=== PATIENT | female | born 1990 | race Caucasian/White ===

== ENCOUNTER 2018-01-07 00:51 | Emergency (ER) | payer OTHER ==
[2018-01-07] MEDS ORDERED: LIDOCAINE 1% INJ-PF (10 MG/ML) 30 ML SDV INJ ONE (01:25)
--- NOTE | 2018-01-07 01:26 | ER Document Report ---
ED General - General Chief Complaint: Suicidal Ideation Stated Complaint: SUICIDAL IDEATION Time Seen by Provider: 01/07/18 01:02 Mode of Arrival: Ambulatory TRAVEL OUTSIDE OF THE [place] IN LAST 30 DAYS: No - HPI Patient complains to provider of: self injury Onset: Other - This is a 27-year-old female that presents for evaluation of depression as well as her right wrist. She notes that she has been wanting to harm herself recently because she is going through divorce and feeling very stressed. She has had an attempt to harm herself in the past when she was stressed. Is not currently on any medications is never been done before, was seen a week prior and told that she should pursue outpatient treatment was discharged from [facility]. She denies any desire to harm anyone else, any hallucinations. - Related Data Allergies/Adverse Reactions: No Known Allergies Allergy (Unverified 01/07/18 01:10) Past Medical History - General Information source: Patient - Social History Smoking Status: Former Smoker Family History: None Psychiatric Medical History: Reports: Hx Depression Review of Systems - Review of Systems -: Yes All other systems reviewed and negative Physical Exam - Vital signs Vitals: Pulse 99 01/07/18 01:10 - General General appearance: Appears well In distress: None - HEENT Head: Normocephalic Eyes: Normal Conjunctiva: Normal Cornea: Normal Extraocular movements intact: Yes Eyelashes: Normal Pupils: PERRL - Respiratory Respiratory status: No respiratory distress Chest status: Nontender Breath sounds: Normal Chest palpation: Normal - Cardiovascular Rhythm: Regular Heart sounds: Normal auscultation Murmur: No - Abdominal Inspection: Normal Distension: No distension Tenderness: Nontender - Back Back: Normal - Extremities General lower extremity: Normal inspection, Nontender, Normal ROM, Normal strength Arm: Other - The upper extremities are symmetric, there is normal range of motion at the shoulders, elbows, wrists. There is a linear horizontal laceration extending against the dorsal aspect of the right forearm into the subcutaneous tissue, no appreciable underlying tendon injury, no appreciable muscular involvement - Neurological Neuro grossly intact: Yes Cognition: Normal Orientation: AAOx4 Benedicta Coma Scale Eye Opening: Spontaneous Angelita Coma Scale Verbal: Oriented Angelita Coma Scale Motor: Obeys Commands Benedicta Coma Scale Total: 15 Speech: Normal Cranial nerves: Normal Cerebellar coordination: Normal Motor strength normal: LUE, RUE, LLE, RLE - Psychological Associated symptoms: Normal affect Course - Re-evaluation Re-evalutation: 01/07/18 06:26 27-year-old female who cut her right wrist this evening in an attempt to harm herself. Has a history of depression which is been untreated in the past, notes that she is got increased stress as a relation of going through divorce. Denies any medical problems, any other health problems, any medication use drug use or otherwise. Patient is a 4 cm laceration over the right forearm, will primarily repair this. Will update patient's tetanus. Will contact psychiatry for evaluation of this patient. We will defer disposition determination through mental health services. At this time the patient has been medically cleared, she is clinically sober. - Vital Signs Vital signs: Temp Pulse Resp BP Pulse Ox 99 01/07/18 01:10 - Laboratory Result Diagrams: 01/07/18 01:35 01/07/18 01:35 Laboratory results interpreted by me: 01/07/18 01:35 Sodium 146.2 H Chloride 108 H AST 12 L Total Protein 8.7 H Albumin 5.2 H Salicylates < 1.0 L Acetaminophen < 10 L Procedures - Laceration/Wound Repair Right Volar Arm Wound length (cm): 4 Wound's Depth, Shape: Superficial Laceration pre-procedure: Sterile PPE donned Anesthetic type: 1% Lidocaine Volume Anesthetic (mLs): 5 Wound explored: Clean Irrigated w/ Saline (mLs): 500 Wound Debrided: Minimal Wound Repaired With: Sutures Suture Size/Type: 4:0, Prolene Number of Sutures: 3 Layer Closure?: No Discharge - Discharge Clinical Impression: Self-injurious behavior
[2018-01-07 01:45] LABS: ABSOLUTE EOSINOPHILS # (AUTO) 0.1 10^3/uL (0.0-0.6); ABSOLUTE LYMPHOCYTES (AUTO) 2.5 10^3/uL (0.5-4.7); ABSOLUTE MONOCYTES (AUTO) 0.4 10^3/uL (0.1-1.4); ABSOLUTE NEUT (AUTO) 3.2 10^3/uL (1.7-8.2); BASOPHILS % (AUTO) 0.8 % (0-2); EOSINOPHILS % (AUTO) 1.8 % (0-6); HEMATOCRIT 40.8 % (36.0-47.0); LYMPHOCYTES % (AUTO) 40.2 % (13-45); MEAN CORPUSCULAR HEMOGLOBIN 30.4 pg (27.0-33.4); MEAN CORPUSCULAR HGB CONC 34.3 g/dL (32.0-36.0); MEAN CORPUSCULAR VOLUME 89 fl (80-97); MONOCYTES % (AUTO) 6.8 % (3-13); PLATELET COUNT 282 10^3/uL (150-450); RED BLOOD COUNT 4.61 10^6/uL (3.72-5.28); RED CELL DISTRIBUTION WIDTH 13.1 % (11.5-14.0); SEGMENTED NEUTROPHILS % (AUTO) 50.4 % (42-78); TOTAL CELLS COUNTED % (AUTO) 100 %; WHITE BLOOD COUNT 6.3 10^3/uL (4.0-10.5)
[2018-01-07 01:55] LABS: APPEARANCE,URINE CLEAR; BILIRUBIN,URINE NEGATIVE (NEGATIVE); COLOR,URINE COLORLESS; GLUCOSE, URINE NEGATIVE (NEGATIVE); KETONES,URINE NEGATIVE (NEGATIVE); LEUKOCYTE ESTERASE,URINE NEGATIVE (NEGATIVE); NITRITE,URINE NEGATIVE (NEGATIVE); PROTEIN,URINE NEGATIVE (NEGATIVE); URINE SPECIFIC GRAVITY 1.001; UROBILINOGEN,URINE NEGATIVE mg/dL (<2.0)
[2018-01-07 02:02] LABS: ALANINE AMINOTRANSFERASE 27 U/L (9-52); ALBUMIN 5.2 g/dL (3.5-5.0); ALCOHOL 212 mg/dL (NONE DETECTED); ALKALINE PHOSPHATASE 46 U/L (38-126); ANION GAP 15 (5-19); ASPARTATE AMINO TRANSFERASE 12 U/L (14-36); BILIRUBIN,DIRECT 0.2 mg/dL (0.0-0.4); BILIRUBIN,TOTAL 0.6 mg/dL (0.2-1.3); BLOOD UREA NITROGEN 7 mg/dL (7-20); CALCIUM 9.5 mg/dL (8.4-10.2); CARBON DIOXIDE 23 mmol/L (22-30); CHLORIDE 108 mmol/L (98-107); GLUCOSE 103 mg/dL (75-110); POTASSIUM 4.2 mmol/L (3.6-5.0); SODIUM 146.2 mmol/L (137-145); TOTAL PROTEIN 8.7 g/dL (6.3-8.2)
[2018-01-07 02:05] LABS: ACETAMINOPHEN < 10 ug/mL (10-30); SALICYLATE < 1.0 mg/dL (2.0-20.0)
[2018-01-07 02:12] LABS: URINE AMPHETAMINES SCREEN NEGATIVE; URINE BARBITURATES SCREEN NEGATIVE; URINE BENZODIAZEPINES SCREEN NEGATIVE; URINE COCAINE SCREEN NEGATIVE; URINE MARIJUANA (THC) SCREEN NEGATIVE; URINE METHADONE SCREEN NEGATIVE; URINE PHENCYCLIDINE SCREEN NEGATIVE
[2018-01-07] MEDS ORDERED: DIPH/PERTUSS(ACELL)/TETANUS VAC/PF 0.5 ML SYR (>=10YO) IM ONE (02:41)
--- NOTE | 2018-01-07 09:34 | EKG REPORT ---
SEVERITY:- NORMAL ECG - SINUS RHYTHM : Confirmed by: Reanna Phoenix MD 07-Jan-2018 09:33:14
--- NOTE | 2018-01-07 09:57 | ER Document Report ---
Doctor's Note Notes: 01/07/18 09:56 27-year-old female presenting with suicidal ideations and cutting her wrist. Patient has stress secondary to going through a divorce. Patient was supposedly seen and released from [facility] 1 week ago. Patient has no psychiatrist and does not have any formal psychiatric diagnosis according to the patient's report. Vital signs are stable. Labs as recorded. Awaiting psychiatry evaluation. 01/07/18 10:12 I have added a test and have had a long discussion with the patient and the friend in the room. Patient does feel comfortable going home as she states she does have a psychology appointment on Tuesday but still does not trust herself feeling safe to not inflict self-harm. She denies any auditory visual hallucinations. Labs as recorded. Vital signs are stable.
--- NOTE | 2018-01-07 13:56 | PSYCHOLOGICAL NOTE ---
Psych Note - Psych Note Psych Note: Reason for consult: suicidal ideation, depression Consent for permissions: Mandy, personal friend [phone] Pt arrives to ED with c/o depression. Pt has cut her right forearm prior to arrival. Pt was seen at [facility] and d/c home yesterday for outpatient care. Pt has appointment with [facility] for Tue. 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 No specific incident has occured to cause her to harm herself. Pt reports history of same. Patient states that she "self inflicted" a wound to her right arm last night. Patient disclosed that she does not feel sad but impulsive and that is why she chose to cut her self. Patient states that she was not trying to kill her self but just release the anger. Patient says that "she just got the thought in her head" and cut herself. When asked why she does not want to kill herself by this Clinician, patient reported "I couldn't do that to my parents". Patient also disclosed that she does not have access to weapons in the home. Patient was discharged from [facility] last night and has an appointment on Tuesday at [facility]. Patient is requesting inpatient hospitalization because she knows that she will not follow through on her own if it is "just" outpatient therapy. Patient reports that she was also hospitalized at the [facility] overnight in September for an incident of cutting but was released. 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 However, patient discloses that she was drinking during this incident. Patient is not sure how she feels about the divorce at this time. Mandy, the patient's friend, reports that her and the patient met up at [employer] for drinks and dinner. Mandy states that the patient also attended a wine & design class before coming to meet her for drinks, so patient may have already had some alcohol in her system. After awhile, Mandy and the patient split up and went their separate ways for the evening. Mandy states that she was home for about an hour when she got a call that the patient was in crisis. Mandy states that she called 911 and rode in the ambulance with the client. Mandy reports that the patient gets very depressed when she is drinking but can function fine when there is no alcohol involved. Just the other night, Mandy states that patient came to her house to watch movies and no alcohol was involved. Mandy does remember a conversation about one month ago, where patient exclaimed "I don't know why I am here" during a conversation but would not elaborate. Mandy messaged the patient's overseas and he confirmed that there was a gun in the house under a padlock and that the patient did not have the combination to open it. Patient is alert and oriented to person, place, time and circumstance. Mood is dysphoric with a tearful affect. Patient denied suicidal ideation to this clinician during the assessment but then could not rule it out when she spoke to the doctor. Conversational speech was within normal rate, tone and prosody. Intellectual abilities appear to be within the average range. Attention and Concentration are fair. Insight, judgment and impulse control are fair. Eye contact was well maintained. Organized and linear thought process present during assessment. No medication recommendations at this time Diagnosis 301.83 (F60.3) Borderline Personality Disorder Impression/Plan: Patient is recommended for IVC. Patient is experiencing increased depression and self harm behaviors. Patient has been accepted into [facility] and will be transported today. Patient disclosed to the physician that she did not feel safe going home and could not rule out active suicidal ideation. 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 Patient's mood is dysphoric with a tearful affect. Patient is slow to engage the Clinician at this time. Dr. Gao was consulted on the care and management of this patient; attending physician is in agreement with recommendations and disposition.
[2018-01-08 03:59] VITALS: BP 115/77
== END 2018-01-08 03:57 ==
LOC: ER 00:51
PROC: 0HQDXZZ Repair Right Lower Arm Skin, External Approach (ICD-10-PCS; principal; 2018-01-07)
DX: F32.9 Major depressive disorder, single episode, unspecified (principal); S51.811A Laceration without foreign body of right forearm, initial encounter; X78.9XXA Intentional self-harm by unspecified sharp object, initial encounter; R45.851 Suicidal ideations; Z87.891 Personal history of nicotine dependence; Z23 Encounter for immunization
CPT/HCPCS: 93005; 99285; 36415; 80307 ×4; 85025; 81025; 80053; 81001; 90715; 93010; 12002; J3490

== ENCOUNTER 2018-04-19 00:44 | Inpatient (IN) | payer OTHER ==
--- NOTE | 2018-04-19 01:03 | ER Document Report ---
ED Substance Abuse / Acc. OD - General Chief Complaint: Overdose Stated Complaint: POSSIBLE OVERDOSE Time Seen by Provider: 04/19/18 01:02 Mode of Arrival: Stretcher Information source: Patient Notes: Patient is a 27-year-old female with a past history of chronic depression who presents with intentional overdose just prior to arrival. Patient reports feeling suicidal, therefore she took an entire bottle (30) of 150 mg Wellbutrin. She currently reports feeling increased depression but is unwilling to give details, however she does deny any issues with family or friends that precipitated the episode. She currently denies confusion, weakness, nausea, vomiting, vision changes, or any other symptom. TRAVEL OUTSIDE OF THE [place] IN LAST 30 DAYS: No - HPI Patient complains to provider of: Other - Intentional drug overdose Onset: Just prior to arrival Onset/Duration: Sudden Quality of pain: No pain Severity: None Pain Level: Denies Situational problems related to: Spouse Overdose of: Anti-depressants Associated Symptoms: None Similar symptoms previously: No Recently seen / treated by doctor: No - Related Data Allergies/Adverse Reactions: No Known Allergies Allergy (Unverified 01/07/18 01:10) Past Medical History - General Information source: Patient, Emergency Med Personnel - Social History Smoking Status: Never Smoker Chew tobacco use (# tins/day): No Frequency of alcohol use: None Drug Abuse: None Lives with: Family Family History: None Patient has suicidal ideation: Yes Patient has homicidal ideation: No - Past Medical History Cardiac Medical History: Reports: None Pulmonary Medical History: Reports: None EENT Medical History: Reports: None Neurological Medical History: Reports: None Endocrine Medical History: Reports: None Renal/ Medical History: Reports: None Malignancy Medical History: Reports: None GI Medical History: Reports: None Musculoskeletal Medical History: Reports None Skin Medical History: Reports None Psychiatric Medical History: Reports: Hx Depression Traumatic Medical History: Reports: None Infectious Medical History: Reports: None Surgical Hx: Negative Past Surgical History: Reports: None - Immunizations Immunizations up to date: Yes Hx Diphtheria, Pertussis, Tetanus Vaccination: Yes Review of Systems - Review of Systems Constitutional: No symptoms reported EENT: No symptoms reported Cardiovascular: No symptoms reported Respiratory: No symptoms reported Gastrointestinal: No symptoms reported Genitourinary: No symptoms reported Female Genitourinary: No symptoms reported Musculoskeletal: No symptoms reported Skin: No symptoms reported Hematologic/Lymphatic: No symptoms reported Neurological/Psychological: See HPI, Depression, Suicidal ideation -: Yes All other systems reviewed and negative Physical Exam - Vital signs Vitals: Temp Resp Pulse Ox 98.7 F 20 99 04/19/18 00:50 04/19/18 00:50 04/19/18 00:50 Interpretation: Normal - Notes Notes: Patient is visibly upset and depressed appearing but in no acute distress - General General appearance: Appears well, Alert - HEENT Head: Normocephalic, Atraumatic Eyes: Normal Pupils: PERRL - Respiratory Respiratory status: No respiratory distress Chest status: Nontender Breath sounds: Normal Chest palpation: Normal - Cardiovascular Rhythm: Regular Heart sounds: Normal auscultation Murmur: No - Abdominal Inspection: Normal Distension: No distension Bowel sounds: Normal Tenderness: Nontender Organomegaly: No organomegaly - Rectal Notes: Deferred - Genitourinary Notes: Deferred - Back Back: Normal, Nontender - Extremities General upper extremity: Normal inspection, Nontender, Normal color, Normal ROM, Normal temperature General lower extremity: Normal inspection, Nontender, Normal color, Normal ROM, Normal temperature, Normal weight bearing. No: Marcia's sign - Neurological Neuro grossly intact: Yes Cognition: Normal Orientation: AAOx4 Angelita Coma Scale Eye Opening: Spontaneous [place] Coma Scale Verbal: Oriented [place] Coma Scale Motor: Obeys Commands [place] Coma Scale Total: 15 Speech: Normal Motor strength normal: LUE, RUE, LLE, RLE Sensory: Normal - Psychological Associated symptoms: Anxious, Depressed - Skin Skin Temperature: Warm Skin Moisture: Dry Skin Color: Normal Course - Re-evaluation Re-evalutation: 04/19/18 01:38 Patient clearly intended to overdose. Currently is stable but upset. Consultation with the [facility] Control [facility] revealed to admit the patient for a 24-hour observation to assess for seizure activity as well as prolonged QT intervals on EKG. Will obtain labs, involuntarily commit the patient, and admit. 04/19/18 04:53 Patient continues to be stable, labs are unremarkable. - Vital Signs Vital signs: Temp Pulse Resp BP Pulse Ox 98.7 F 18 94/56 L 97 04/19/18 00:50 04/19/18 02:01 04/19/18 02:01 04/19/18 02:01 - Laboratory Result Diagrams: 04/19/18 01:02 04/19/18 01:02 Laboratory results interpreted by me: 04/19/18 01:02 Chloride 112 H Carbon Dioxide 21 L Glucose 156 H AST 12 L Salicylates < 1.0 L Acetaminophen < 10 L - EKG Interpretation by Me EKG shows normal: Sinus rhythm Rate: Normal Rhythm: NSR Hersey/QRS: No: Right axis deviation, Left axis deviation, RBBB, LBBB, IVCD, LAHB/LAFB, LPHB/LPFB, Bifasicular block Voltage: No: Increased voltage, Consistant with LVH, Decreased voltage, Throughout, Limb leads Heart block present: No: 1st Degree, Mobitz 1, Mobitz 2, CHB (3rd degree block) When compared to previous EKG there are: No significant change - Consults Dr. Cordova Time consulted: 04:54 - will admit Consulted provider: will come to ER Discharge - Discharge Clinical Impression: Intentional overdose of drug in tablet form Condition: Stable Disposition: ADMITTED INPATIENT Admitting Provider: Hospitalist Unit Admitted: Telemetry
[2018-04-19 01:08] LABS: ABSOLUTE BASOPHILS # (AUTO) 0.1 10^3/uL (0.0-0.2); ABSOLUTE EOSINOPHILS # (AUTO) 0.3 10^3/uL (0.0-0.6); ABSOLUTE LYMPHOCYTES (AUTO) 2.5 10^3/uL (0.5-4.7); ABSOLUTE MONOCYTES (AUTO) 0.3 10^3/uL (0.1-1.4); ABSOLUTE NEUT (AUTO) 3.3 10^3/uL (1.7-8.2); BASOPHILS % (AUTO) 0.8 % (0-2); EOSINOPHILS % (AUTO) 4.1 % (0-6); HEMOGLOBIN 13.3 g/dL (12.0-15.5); LYMPHOCYTES % (AUTO) 38.1 % (13-45); MEAN CORPUSCULAR HEMOGLOBIN 29.7 pg (27.0-33.4); MEAN CORPUSCULAR HGB CONC 33.3 g/dL (32.0-36.0); MEAN CORPUSCULAR VOLUME 89 fl (80-97); MONOCYTES % (AUTO) 5.2 % (3-13); PLATELET COUNT 245 10^3/uL (150-450); RED BLOOD COUNT 4.48 10^6/uL (3.72-5.28); RED CELL DISTRIBUTION WIDTH 12.6 % (11.5-14.0); SEGMENTED NEUTROPHILS % (AUTO) 51.8 % (42-78); TOTAL CELLS COUNTED % (AUTO) 100 %; WHITE BLOOD COUNT 6.5 10^3/uL (4.0-10.5)
[2018-04-19 01:24] LABS: ALANINE AMINOTRANSFERASE 24 U/L (9-52); ALBUMIN 4.7 g/dL (3.5-5.0); ALCOHOL 248 mg/dL (NONE DETECTED); ALKALINE PHOSPHATASE 62 U/L (38-126); ANION GAP 12 (5-19); ASPARTATE AMINO TRANSFERASE 12 U/L (14-36); BILIRUBIN,DIRECT 0.1 mg/dL (0.0-0.4); BILIRUBIN,TOTAL 0.3 mg/dL (0.2-1.3); BLOOD UREA NITROGEN 12 mg/dL (7-20); CALCIUM 8.9 mg/dL (8.4-10.2); CARBON DIOXIDE 21 mmol/L (22-30); CHLORIDE 112 mmol/L (98-107); GLUCOSE 156 mg/dL (75-110); POTASSIUM 3.8 mmol/L (3.6-5.0); SODIUM 144.6 mmol/L (137-145); TOTAL PROTEIN 7.4 g/dL (6.3-8.2)
[2018-04-19 01:25] LABS: ACETAMINOPHEN < 10 ug/mL (10-30); SALICYLATE < 1.0 mg/dL (2.0-20.0)
[2018-04-19] MEDS ORDERED: NORMAL SALINE 1000 ML 1,000 ML IV ONE (03:47)
[2018-04-19] MEDS ORDERED: MAG HYDROX/AL HYDROX/SIMETH SUSP 30 ML UDCUP PO PRN (06:12)
[2018-04-19] MEDS ORDERED: ONDANSETRON 4 MG TAB.RAPDIS PO PRN (06:12)
[2018-04-19] MEDS ORDERED: MAGNESIUM HYDROXIDE SUSP 30 ML UDCUP PO PRN (06:12)
[2018-04-19] MEDS ORDERED: ONDANSETRON HCL INJ/PF 4 MG/2 ML SDV IV PRN (06:12)
[2018-04-19] MEDS ORDERED: NALBUPHINE HCL INJ 10 MG/1 ML AMPULE IV PRN (06:45)
--- NOTE | 2018-04-19 06:45 | PDOC H&P ---
History of Present Illness Admission Date/PCP: 04/19/18 04:56 Patient complains of: Bupropion overdose History of Present Illness: VIKKI ALDRIDGE is a 27 year old female who presented to the emergency room within an hour of taking 30 capsules of bupropion 150 mg at home. Patient states that the affect was more 1 of an impulse than of a thought out plan to actually kill herself. The impulse was definitely suicidal but she very quickly changed her mind after taking the pills. She denies any symptoms after ingestion with the exception of drowsiness and a moderately severe bifrontal headache. In the emergency room she was found to have essentially negative evaluation and was subsequently admitted to observation status for telemetry monitoring for arrhyth mias and serial monitoring of her vital signs. Involuntary commitment papers have been signed and the patient will most likely be seen by a inpatient psychiatric facility after discharge/transfer if advised by psychiatric services. Past Medical History Cardiac Medical History: Denies: Coronary Artery Disease, DVT, Hyperlipidema, Hypertension, Pulmonary Embolism Pulmonary Medical History: Denies: Asthma, Bronchitis, Pneumonia EENT Medical History: Reports: None Neurological Medical History: Denies: Multiple Sclerosis, Seizures Endocrine Medical History: Denies: Diabetes Mellitus Type 1, Hyperthyroidism, Hypothyroidism Renal/ Medical History: Denies: Chronic Kidney Disease, Nephrolithiasis Malignancy Medical History: Reports: None GI Medical History: Denies: Cirrhosis, Crohn's Disease, Hepatitis, Ulcerative Colitis Musculoskeltal Medical History: Denies: Arthritis, Fibromyalgia Skin Medical History: Denies: Eczema, Psoriasis Psychiatric Medical History: Reports: Depression Denies: Alcohol Dependency, Substance Abuse, Tobacco Dependency Traumatic Medical History: Reports: None Hematology: Denies: Anemia, Bleeding Tendencies Infectious Medical History: Reports: None Past Surgical History Past Surgical History: Reports: None Social History Information Source: Patient Lives with: Family Smoking Status: Never Smoker Frequency of Alcohol Use: None Hx Recreational Drug Use: No Drugs: None Hx Prescription Drug Abuse: No - Advance Directive Resuscitation Status: Full Code Surrogate healthcare decision maker:: Mandy Rogers Family History Family History: denies: CAD, DM, Hypertension, Malignancy Parental Family History Reviewed: Yes Children Family History Reviewed: No Sibling(s) Family History Reviewed.: Yes Medication/Allergy Home Medications: No Home Medications 01/07/18 Allergies/Adverse Reactions: No Known Allergies Allergy (Unverified 10/13/18 01:10) Review of Systems Constitutional: PRESENT: as per HPI, headache(s), other - Somnolence. ABSENT: anorexia, fever(s) Eyes: ABSENT: visual disturbances, other - Ocular pain Ears: ABSENT: hearing changes, other - Ear pain Nose, Mouth, and Throat: ABSENT: mouth pain, sore throat Cardiovascular: ABSENT: chest pain, dyspnea on exertion, edema, orthropnea, palpitations Respiratory: ABSENT: cough, dyspnea Gastrointestinal: ABSENT: abdominal pain, constipation, diarrhea, nausea, vomiting Genitourinary: ABSENT: dysuria, hematuria Musculoskeletal: ABSENT: deformity, joint swelling Integumentary: ABSENT: pruritus, rash Neurological: ABSENT: confusion, convulsions, memory loss, tremor(s) Psychiatric: PRESENT: depression, suicidal ideation. ABSENT: anxiety Endocrine: ABSENT: cold intolerance, heat intolerance Hematologic/Lymphatic: ABSENT: easy bleeding, easy bruising Physical Exam Vital Signs: Temp Pulse Resp BP Pulse Ox 98.7 F 17 99/70 L 97 04/19/18 00:50 04/19/18 05:36 04/19/18 05:36 04/19/18 05:36 General appearance: PRESENT: no acute distress, cooperative Head exam: PRESENT: atraumatic, normocephalic Eye exam: PRESENT: conjunctiva pink, EOMI. ABSENT: scleral icterus Ear exam: PRESENT: normal external ear exam. ABSENT: bleeding, drainage Mouth exam: PRESENT: dry mucosa, neck supple Neck exam: ABSENT: JVD, thyromegaly, tracheal deviation Respiratory exam: PRESENT: clear to auscultation cherie, symmetrical, unlabored Cardiovascular exam: PRESENT: RRR. ABSENT: clicks, diastolic murmur, gallop, rubs, systolic murmur Pulses: PRESENT: normal radial pulses, normal dorsalis pedis pul Vascular exam: PRESENT: normal capillary refill. ABSENT: pallor GI/Abdominal exam: PRESENT: normal bowel sounds, soft Rectal exam: PRESENT: deferred Extremities exam: ABSENT: joint swelling, pedal edema, tenderness Musculoskeletal exam: PRESENT: full ROM, normal inspection Neurological exam: PRESENT: alert, oriented to person, oriented to place, oriented to time, oriented to situation, CN II-XII grossly intact. ABSENT: motor sensory deficit Psychiatric exam: PRESENT: appropriate affect, depressed, suicidal ideation Skin exam: PRESENT: dry, intact, warm. ABSENT: jaundice, rash, urticaria Results Laboratory Results: 04/19/18 01:02 04/19/18 01:02 04/19/18 04/19/18 04/19/18 01:02 01:02 01:02 WBC 6.5 RBC 4.48 Hgb 13.3 Hct 40.0 MCV 89 MCH 29.7 MCHC 33.3 RDW 12.6 Plt Count 245 Seg Neutrophils % 51.8 Lymphocytes % 38.1 Monocytes % 5.2 Eosinophils % 4.1 Basophils % 0.8 Absolute Neutrophils 3.3 Absolute Lymphocytes 2.5 Absolute Monocytes 0.3 Absolute Eosinophils 0.3 Absolute Basophils 0.1 Sodium 144.6 Potassium 3.8 Chloride 112 H Carbon Dioxide 21 L Anion Gap 12 BUN 12 Creatinine 0.84 Est GFR ( Amer) > 60 Est GFR (Non-Af Amer) > 60 Glucose 156 H Calcium 8.9 Total Bilirubin 0.3 AST 12 L ALT 24 Alkaline Phosphatase 62 Total Protein 7.4 Albumin 4.7 Serum HCG, Qual NEGATIVE Assessment & Plan - Diagnosis (1) Depression Qualifiers: Depression Type: unspecified Qualified Code(s): F32.9 - Major depressive disorder, single episode, unspecified Is this a current diagnosis for this admission?: Yes Plan: Patient will be evaluated by psychiatric services and therapy will be initiated or patient will be referred for inpatient psychiatric therapy where she will be started on a treatment program. (2) Suicidal ideation Is this a current diagnosis for this admission?: Yes Plan: Patient will be evaluated by psychiatric services. Involuntary commitment papers have been filled out and are available on the chart. (3) Headache Qualifiers: Headache type: unspecified Headache chronicity pattern: acute headache Intractability: not intractable Qualified Code(s): R51 - Headache Is this a current diagnosis for this admission?: Yes Plan: Patient will be treated with Tylenol as needed for headache pain and if pain is severe she can be treated with Nubain 10 mg IV every 3 hours as needed severe headache. (4) Intentional overdose of drug in tablet form Is this a current diagnosis for this admission?: Yes Plan: Patient will be evaluated by psychiatric services and appropriate treatment and disposition will be determined. Involuntary commitment papers are available on the patient's chart. - Time Time Spent: 30 to 50 Minutes Critical Time spent with patient: Less than 15 minutes Anticipated discharge: Other - Inpatient psychiatric facility - Inpatient Certification Based on my medical assessment, after consideration of the patient's c omorbidities, presenting symptoms, or acuity I expect that the services needed warrant INPATIENT care.: Yes I certify that my determination is in accordance with my understanding of Medicare's requirements for reasonable and necessary INPATIENT services [42 CFR 412.3e].: Yes Medical Necessity: Need Close Monitoring Due to Risk of Patient Decompensation, Need For Continuous Telemetry Monitoring, Risk of Complication if Not Cared For in Hospital
--- NOTE | 2018-04-19 07:25 | EKG REPORT ---
SEVERITY:- BORDERLINE ECG - SINUS RHYTHM CONSIDER RIGHT VENTRICULAR HYPERTROPHY : Confirmed by: Reanna Phoenix MD 19-Apr-2018 07:24:59
--- NOTE | 2018-04-19 07:26 | EKG REPORT ---
SEVERITY:- ABNORMAL ECG - SINUS TACHYCARDIA NONSPECIFIC REPOL ABNORMALITY, DIFFUSE LEADS : Confirmed by: Reanna Phoenix MD 19-Apr-2018 07:25:24
[2018-04-19 07:50] LABS: APPEARANCE,URINE CLEAR; BILIRUBIN,URINE NEGATIVE (NEGATIVE); COLOR,URINE STRAW; GLUCOSE, URINE NEGATIVE (NEGATIVE); KETONES,URINE NEGATIVE (NEGATIVE); LEUKOCYTE ESTERASE,URINE NEGATIVE (NEGATIVE); NITRITE,URINE NEGATIVE (NEGATIVE); PROTEIN,URINE NEGATIVE (NEGATIVE); URINE SPECIFIC GRAVITY 1.012; UROBILINOGEN,URINE NEGATIVE mg/dL (<2.0)
[2018-04-19] MEDS ORDERED: OXYCODONE-ACETAMINOPHEN 5-325 MG TABLET PO PRN (08:03)
[2018-04-19 08:04] LABS: URINE AMPHETAMINES SCREEN NEGATIVE; URINE BARBITURATES SCREEN NEGATIVE; URINE BENZODIAZEPINES SCREEN NEGATIVE; URINE COCAINE SCREEN NEGATIVE; URINE MARIJUANA (THC) SCREEN NEGATIVE; URINE METHADONE SCREEN NEGATIVE; URINE PHENCYCLIDINE SCREEN NEGATIVE
--- NOTE | 2018-04-19 08:28 | PDOC PROGRESS REPORT ---
Subjective Progress Note for:: 04/19/18 Subjective:: 04/19/2018-no acute events since admission. Patient is complaining of nausea she threw up p.o. Zofran then she was given IV Zofran and nausea was resolving. No complaints from the patient. Patient was started on Nubain every 3 hours for headaches. Plan to discontinue Nubain started on Percocet 2 tablets every 4 as needed. Reason For Visit: BUPROPION OVERDOSE, IVC PAPERS COMPLETED Physical Exam Vital Signs: Temp Pulse Resp BP Pulse Ox 98.4 F 16 103/67 99 04/19/18 06:00 04/19/18 07:00 04/19/18 07:00 04/19/18 07:00 Intake & Output 04/18/18 04/19/18 04/20/18 06:59 06:59 06:59 Weight 56.245 kg General appearance: PRESENT: no acute distress Head exam: PRESENT: atraumatic Eye exam: PRESENT: PERRLA Neck exam: ABSENT: carotid bruit, JVD, lymphadenopathy, thyromegaly Respiratory exam: PRESENT: decreased breath sounds Cardiovascular exam: PRESENT: tachycardia GI/Abdominal exam: PRESENT: normal bowel sounds, soft. ABSENT: distended, guarding, mass, organolmegaly, rebound, tenderness Extremities exam: PRESENT: full ROM. ABSENT: calf tenderness, clubbing, pedal edema Neurological exam: PRESENT: alert, awake, oriented to person, oriented to place, oriented to time, oriented to situation, CN II-XII grossly intact. ABSENT: motor sensory deficit Psychiatric exam: PRESENT: appropriate affect, normal mood. ABSENT: homicidal ideation, suicidal ideation Results Laboratory Results: 04/19/18 01:02 04/19/18 01:02 04/19/18 04/19/18 04/19/18 01:02 01:02 01:02 WBC 6.5 RBC 4.48 Hgb 13.3 Hct 40.0 MCV 89 MCH 29.7 MCHC 33.3 RDW 12.6 Plt Count 245 Seg Neutrophils % 51.8 Lymphocytes % 38.1 Monocytes % 5.2 Eosinophils % 4.1 Basophils % 0.8 Absolute Neutrophils 3.3 Absolute Lymphocytes 2.5 Absolute Monocytes 0.3 Absolute Eosinophils 0.3 Absolute Basophils 0.1 Sodium 144.6 Potassium 3.8 Chloride 112 H Carbon Dioxide 21 L Anion Gap 12 BUN 12 Creatinine 0.84 Est GFR ( Amer) > 60 Est GFR (Non-Af Amer) > 60 Glucose 156 H Calcium 8.9 Total Bilirubin 0.3 AST 12 L ALT 24 Alkaline Phosphatase 62 Total Protein 7.4 Albumin 4.7 Serum HCG, Qual NEGATIVE Urine Color Urine Appearance Urine pH Ur Specific [place] Urine Protein Urine Glucose (UA) Urine Ketones Urine Blood Urine Nitrite Ur Leukocyte Esterase Urine WBC (Auto) Urine RBC (Auto) 04/19/18 07:30 WBC RBC Hgb Hct MCV MCH MCHC RDW Plt Count Seg Neutrophils % Lymphocytes % Monocytes % Eosinophils % Basophils % Absolute Neutrophils Absolute Lymphocytes Absolute Monocytes Absolute Eosinophils Absolute Basophils Sodium Potassium Chloride Carbon Dioxide Anion Gap BUN Creatinine Est GFR ( Amer) Est GFR (Non-Af Amer) Glucose Calcium Total Bilirubin AST ALT Alkaline Phosphatase Total Protein Albumin Serum HCG, Qual Urine Color STRAW Urine Appearance CLEAR Urine pH 5.0 Ur Specific [place] 1.012 Urine Protein NEGATIVE Urine Glucose (UA) NEGATIVE Urine Ketones NEGATIVE Urine Blood NEGATIVE Urine Nitrite NEGATIVE Ur Leukocyte Esterase NEGATIVE Urine WBC (Auto) 1 Urine RBC (Auto) 0 Assessment & Plan - Diagnosis (1) Depression Qualifiers: Depression Type: unspecified Qualified Code(s): F32.9 - Major depressive disorder, single episode, unspecified Is this a current diagnosis for this admission?: Yes Plan: 04/19/2018-patient was admitted with a depression with intentional intake of 30 tablets of Wellbutrin. She was under IVC. A consult was requested. (2) Suicidal ideation Is this a current diagnosis for this admission?: Yes Plan: 04/19/2018 patient was admitted after intentional intake of 30 tablets of Wellbutrin. Psych consult was requested, involuntary commitment papers were done. (3) Intentional overdose of drug in tablet form Is this a current diagnosis for this admission?: Yes Plan: 04/19/2018-patient took 30 tablets of Wellbutrin intentionally. Psych consult was requested their input is will be appreciated. Patient is under IVC. - Time Time Spent with patient: 15-24 minutes Medications reviewed and adjusted accordingly: Yes Anticipated discharge: Home
[2018-04-19] MEDS: ACETAMINOPHEN 325 MG TABLET PO PRN ×2 (09:49→15:49)
[2018-04-19] MEDS: FAMOTIDINE 20 MG TABLET PO SCH ×2 (09:52→22:42)
[2018-04-19] MEDS: ENOXAPARIN SODIUM INJ 40 MG/0.4 ML DISP.SYRIN SUBCUT SCH (09:52)
--- NOTE | 2018-04-19 10:44 | PSYCHOLOGICAL NOTE ---
Psych Note - Psych Note Date seen by psych provider: 04/19/18 Time seen by psych provider: 07:45 Psych Note: Reason for Consult: intentional overdose VIKKI ALDRIDGE is a 27 year old female who presented to the emergency room within an hour of taking 30 capsules of bupropion 150 mg at home. Patient discloses that she intentionally overdosed on her Wellbutrin when asked why she reports "I have no idea." She states that she does have some stress from work however den ies significant stress or new stressors. When asked about her relationship with her (clinician notes patient was last seen in December which she disclosed that she was going through divorce) patient reports that her and her have gotten back together. She confirms that her is still deployed and will be coming home next month. Patient's has been deployed since November. She reports that she is been getting her medications from [facility] and receives therapeutic services with [facility]. Patient does confirm she was drinking last night. When asked about diagnoses she reports that she knows that she has major depressive disorder however reports that lately there has been some discussion on "stuff that I have been able to get past for my childhood." Patient is alert and orientated to person, place, time and circumstance. Mood is flat with flat affect. Clinician notes patient is currently very nauseated and feeling ill due to the overdose. Patient endorses intentional overdose with intent to harm herself. Patient denies homicidal ideation. Delusions are absent behaviors congruent with an intact reality based presentation i.e. organized and linear thought process. Eye contact is poor. Conversational speech is within normal rate, tone and prosody. Intellectual abilities appear to be within average range. Attention and concentration is poor. Insight, judgment, impulse control is poor. No medication recommendations at this time Diagnosis 296.30 (F33.9) Major depressive disorder per history report by patient 291.9 (F10.99) Unspecified substance abuse;alcohol Impression/Plan: Patient is recommended for IVC. Patient reports intentional overdose on her Welburtrin. She is unable or unwilling to discuss events leading up to overdose reporting; " I have no idea." She reports it was an impulsive act with no true trigger. Patient will be reevaluated. Dr. Gao was consulted and care management this patient; attending physicians in ag reement with recommendations and disposition.
--- NOTE | 2018-04-20 08:01 | EKG REPORT ---
SEVERITY:- NORMAL ECG - SINUS RHYTHM : Confirmed by: Reanna Phoenix MD 20-Apr-2018 08:00:11
--- NOTE | 2018-04-20 08:01 | EKG REPORT ---
SEVERITY:- NORMAL ECG - SINUS RHYTHM : Confirmed by: Reanna Phoenix MD 20-Apr-2018 08:00:07
--- NOTE | 2018-04-20 08:01 | EKG REPORT ---
SEVERITY:- OTHERWISE NORMAL ECG - SINUS TACHYCARDIA : Confirmed by: Reanna Phoenix MD 20-Apr-2018 08:00:20
--- NOTE | 2018-04-20 08:01 | EKG REPORT ---
SEVERITY:- NORMAL ECG - SINUS RHYTHM : Confirmed by: Reanna Phoenix MD 20-Apr-2018 08:00:02
[2018-04-20 08:40] LABS: ABSOLUTE EOSINOPHILS # (AUTO) 0.1 10^3/uL (0.0-0.6); ABSOLUTE LYMPHOCYTES (AUTO) 1.4 10^3/uL (0.5-4.7); ABSOLUTE MONOCYTES (AUTO) 0.4 10^3/uL (0.1-1.4); ABSOLUTE NEUT (AUTO) 2.7 10^3/uL (1.7-8.2); BASOPHILS % (AUTO) 0.6 % (0-2); EOSINOPHILS % (AUTO) 1.8 % (0-6); HEMATOCRIT 35.3 % (36.0-47.0); LYMPHOCYTES % (AUTO) 31.2 % (13-45); MEAN CORPUSCULAR HEMOGLOBIN 30.5 pg (27.0-33.4); MEAN CORPUSCULAR HGB CONC 34.1 g/dL (32.0-36.0); MEAN CORPUSCULAR VOLUME 90 fl (80-97); MONOCYTES % (AUTO) 8.9 % (3-13); PLATELET COUNT 206 10^3/uL (150-450); RED BLOOD COUNT 3.94 10^6/uL (3.72-5.28); RED CELL DISTRIBUTION WIDTH 12.7 % (11.5-14.0); SEGMENTED NEUTROPHILS % (AUTO) 57.5 % (42-78); TOTAL CELLS COUNTED % (AUTO) 100 %; WHITE BLOOD COUNT 4.6 10^3/uL (4.0-10.5)
[2018-04-20 09:01] LABS: ALANINE AMINOTRANSFERASE 24 U/L (9-52); ALKALINE PHOSPHATASE 51 U/L (38-126); ANION GAP 6 (5-19); ASPARTATE AMINO TRANSFERASE 10 U/L (14-36); BILIRUBIN,DIRECT 0.1 mg/dL (0.0-0.4); BILIRUBIN,TOTAL 0.8 mg/dL (0.2-1.3); BLOOD UREA NITROGEN 10 mg/dL (7-20); CARBON DIOXIDE 25 mmol/L (22-30); CHLORIDE 108 mmol/L (98-107); CHOLESTEROL 155.86 mg/dL (0-200); GLUCOSE 90 mg/dL (75-110); POTASSIUM 4.1 mmol/L (3.6-5.0); SODIUM 139.2 mmol/L (137-145); TOTAL PROTEIN 6.5 g/dL (6.3-8.2); TRIGLYCERIDES 64 mg/dL (<150)
[2018-04-20 09:12] LABS: DIRECT LDL 71 mg/dL (<100)
[2018-04-20 09:18] LABS: FREE T3 3.37 pg/mL (2.77-5.27)
[2018-04-20 09:31] LABS: THYROID STIMULATING HORMONE 2.63 uIU/mL (0.47-4.68)
[2018-04-20] MEDS: FAMOTIDINE 20 MG TABLET PO SCH ×2 (09:50→22:12)
[2018-04-20] MEDS: ENOXAPARIN SODIUM INJ 40 MG/0.4 ML DISP.SYRIN SUBCUT SCH (09:50)
[2018-04-20] MEDS: ACETAMINOPHEN 325 MG TABLET PO PRN (14:25)
--- NOTE | 2018-04-20 17:28 | PSYCHOLOGICAL NOTE ---
Psych Note - Psych Note Date seen by psych provider: 04/20/18 Time seen by psych provider: 08:05 Psych Note: Reason for Consult: intentional overdose Check-in conducted with patient She reports that she is not "bad" stating that she feels that she was not trying to kill herself that it was just a "impulse issue." She is still unable or unwilling to discuss triggers however reports that she feels that alcohol may play a big role in the difficulties she has. She reports that she does drink weekly 1-2 drinks however states that both this time and back in December she definitely drink more than "normal." She reports that she plans to abstain from alcohol and is hoping that she can get medication adjustment because she feels that her Wellbutrin was not working. She discloses that she would like to have her roommate, Dinora, part of her plan of care. She reports she does not want to go inpatient. No medication recommendations at this time Diagnosis 296.30 (F33.9) Major depressive disorder per history report by patient 291.9 (F10.99) Unspecified substance abuse;alcohol R/O Bipolar disorder Impression/Plan: Patient is recommended for continued IVC. Patient reported intentional overdose on her Welburtrin. She continues to be unable or unwilling to discuss events leading up to overdose. Today she identifies that it was just an "impulse." Patient will be reevaluated. Dr. Gao was consulted and care management this patient; attending physicians in agreement with recommendations and disposition.
--- NOTE | 2018-04-20 17:43 | PDOC PROGRESS REPORT ---
Subjective Progress Note for:: 04/20/18 Subjective:: 04/19/2018-no acute events since admission. Patient is complaining of nausea she threw up p.o. Zofran then she was given IV Zofran and nausea was resolving. No complaints from the patient. Patient was started on Nubain every 3 hours for headaches. Plan to discontinue Nubain started on Percocet 2 tablets every 4 as needed. 04/20/2018 no acute events in the last 24 hours. Patient is alert and oriented communicating very well. Patient is getting occasionally tachycardic whenever she gets anxiety. With activity heart rate is going up to more than 120. Patient is asymptomatic. Discussed the case with the charge from the psychiatric department the request for medical clearance if possible and they are planning to find a place for her in a psychiatric hospital. Patient is under involuntary commitment. Reason For Visit: BUPROPION OVERDOSE, IVC PAPERS COMPLETED Physical Exam Vital Signs: Temp Pulse Resp BP Pulse Ox 98.7 F 86 16 112/69 97 04/20/18 15:46 04/20/18 15:46 04/20/18 15:46 04/20/18 15:46 04/20/18 15:46 Intake & Output 04/19/18 04/20/18 04/21/18 06:59 06:59 06:59 Intake Total 1700 630 Balance 1700 630 Weight 58.3 kg General appearance: PRESENT: no acute distress Eye exam: PRESENT: PERRLA Mouth exam: PRESENT: moist Neck exam: ABSENT: carotid bruit, JVD, lymphadenopathy, thyromegaly Respiratory exam: PRESENT: clear to auscultation cherie. ABSENT: rales, rhonchi, wheezes Cardiovascular exam: PRESENT: tachycardia GI/Abdominal exam: PRESENT: normal bowel sounds, soft. ABSENT: distended, guarding, mass, organolmegaly, rebound, tenderness Extremities exam: PRESENT: full ROM. ABSENT: calf tenderness, clubbing, pedal edema Neurological exam: PRESENT: alert, awake, oriented to person, oriented to place, oriented to time, oriented to situation, CN II-XII grossly intact. ABSENT: motor sensory deficit Psychiatric exam: PRESENT: appropriate affect, normal mood. ABSENT: homicidal ideation, suicidal ideation Results Laboratory Results: 04/20/18 07:43 04/20/18 07:43 04/20/18 04/20/1804/20/19 07:43 07:43 07:43 WBC 4.6 RBC 3.94 Hgb 12.0 Hct 35.3 L MCV 90 MCH 30.5 MCHC 34.1 RDW 12.7 Plt Count 206 Seg Neutrophils % 57.5 Lymphocytes % 31.2 Monocytes % 8.9 Eosinophils % 1.8 Basophils % 0.6 Absolute Neutrophils 2.7 Absolute Lymphocytes 1.4 Absolute Monocytes 0.4 Absolute Eosinophils 0.1 Absolute Basophils 0.0 Sodium 139.2 Potassium 4.1 Chloride 108 H Carbon Dioxide 25 Anion Gap 6 BUN 10 Creatinine 0.84 Est GFR ( Amer) > 60 Est GFR (Non-Af Amer) > 60 Glucose 90 Calcium 9.0 Magnesium 1.9 Total Bilirubin 0.8 AST 10 L ALT 24 Alkaline Phosphatase 51 Total Protein 6.5 Albumin 4.0 Triglycerides 64 Cholesterol 155.86 LDL Cholesterol Direct 71 VLDL Cholesterol 13.0 HDL Cholesterol 78 TSH 2.63 Free T4 1.00 Free T3 pg/mL 3.37 Assessment & Plan - Diagnosis (1) Depression Qualifiers: Depression Type: unspecified Qualified Code(s): F32.9 - Major depressive disorder, single episode, unspecified Is this a current diagnosis for this admission?: Yes Plan: 04/19/2018-patient was admitted with a depression with intentional intake of 30 tablets of Wellbutrin. She was under IVC. A consult was requested. 04/20/2018-patient was admitted for depression and she took 30 tablets of Wellbutrin intentionally before that she said she has 4 glasses of wine. But alcohol level is here is 248. Patient has been told the nurses that if she drinks very heavily almost on daily basis. I am concerned about DTs. (2) Suicidal ideation Is this a current diagnosis for this admission?: Yes Plan: 04/19/2018 patient was admitted after intentional intake of 30 tablets of Wellbutrin. Psych consult was requested, involuntary commitment papers were done. 2017 patient denies any suicidal ideation or thoughts. She took the Wellbutrin intentionally as per the patient. (3) Intentional overdose of drug in tablet form Is this a current diagnosis for this admission?: Yes Plan: 04/19/2018-patient took 30 tablets of Wellbutrin intentionally. Psych consult was requested their input is will be appreciated. Patient is under IVC. 04/20/2018-intentional overdose of Wellbutrin medication. She is doing much better. No complications during the hospital stay. (4) Tachycardia Is this a current diagnosis for this admission?: Yes Plan: 04/20/2018-she is having sinus tachycardia occasionally heart rate is going up to 140. Patient is asymptomatic. I am going to arrange for twelve-lead EKG. (5) Alcohol use Is this a current diagnosis for this admission?: Yes Plan: Alcohol level yesterday is 248. Patient's informed the nurses that patient is a drinks heavily on daily basis. plan to watch for DTs while she was in the hospital. - Time Time Spent with patient: 15-24 minutes Smoking Cessation Education: over 10 minutes Medications reviewed and adjusted accordingly: Yes
--- NOTE | 2018-04-20 21:06 | EKG REPORT ---
SEVERITY:- NORMAL ECG - SINUS RHYTHM : Confirmed by: Reanna Phoenix MD 20-Apr-2018 21:06:11
[2018-04-21 08:17] LABS: ABSOLUTE EOSINOPHILS # (AUTO) 0.1 10^3/uL (0.0-0.6); ABSOLUTE MONOCYTES (AUTO) 0.4 10^3/uL (0.1-1.4); ABSOLUTE NEUT (AUTO) 2.1 10^3/uL (1.7-8.2); BASOPHILS % (AUTO) 0.6 % (0-2); EOSINOPHILS % (AUTO) 2.6 % (0-6); HEMATOCRIT 35.9 % (36.0-47.0); HEMOGLOBIN 12.1 g/dL (12.0-15.5); LYMPHOCYTES % (AUTO) 43.7 % (13-45); MEAN CORPUSCULAR HEMOGLOBIN 30.2 pg (27.0-33.4); MEAN CORPUSCULAR HGB CONC 33.8 g/dL (32.0-36.0); MEAN CORPUSCULAR VOLUME 89 fl (80-97); MONOCYTES % (AUTO) 8.2 % (3-13); PLATELET COUNT 213 10^3/uL (150-450); RED BLOOD COUNT 4.02 10^6/uL (3.72-5.28); RED CELL DISTRIBUTION WIDTH 12.5 % (11.5-14.0); SEGMENTED NEUTROPHILS % (AUTO) 44.9 % (42-78); TOTAL CELLS COUNTED % (AUTO) 100 %; WHITE BLOOD COUNT 4.6 10^3/uL (4.0-10.5)
[2018-04-21 08:38] LABS: ANION GAP 8 (5-19); BLOOD UREA NITROGEN 9 mg/dL (7-20); CARBON DIOXIDE 24 mmol/L (22-30); CHLORIDE 107 mmol/L (98-107); GLUCOSE 91 mg/dL (75-110); POTASSIUM 4.1 mmol/L (3.6-5.0); SODIUM 138.6 mmol/L (137-145)
[2018-04-21] MEDS: FAMOTIDINE 20 MG TABLET PO SCH ×2 (09:40→21:54)
[2018-04-21] MEDS: ENOXAPARIN SODIUM INJ 40 MG/0.4 ML DISP.SYRIN SUBCUT SCH (09:40)
--- NOTE | 2018-04-21 11:18 | PSYCHOLOGICAL NOTE ---
Psych Note - Psych Note Date seen by psych provider: 04/21/18 Psych Note: Reason for Consult: intentional overdose Check-in conducted with patient Medication recommendations per [facility]'s contracted psychiatrist Dr Clara GONSALVES are as follows Zyprexa 5mg every morning and 2.5mg every evening Cogentin 1mg daily please discontinue Oxycodone Start tramadol 25 mg every 6 hours PRN Start Effexor 37.5 mg twice daily Start BuSpar 10 mg twice daily Diagnosis 296.30 (F33.9) Major depressive disorder per history report by patient 291.9 (F10.99) Unspecified substance abuse;alcohol R/O Bipolar disorder Impression/Plan: Patient is recommended for continued IVC. Patient reported intentional overdose on her Welburtrin. She continues to be unable or unwilling to discuss events leading up to overdose. Today she identifies that it was just an "impulse." Patient will be reevaluated. Dr. Gao was consulted and care management this patient; attending physicians in agreement with recommendations and disposition.
--- NOTE | 2018-04-21 14:41 | PDOC PROGRESS REPORT ---
Subjective Progress Note for:: 04/21/18 Subjective:: 04/19/2018-no acute events since admission. Patient is complaining of nausea she threw up p.o. Zofran then she was given IV Zofran and nausea was resolving. No complaints from the patient. Patient was started on Nubain every 3 hours for headaches. Plan to discontinue Nubain started on Percocet 2 tablets every 4 as needed. 04/20/2018 no acute events in the last 24 hours. Patient is alert and oriented communicating very well. Patient is getting occasionally tachycardic whenever she gets anxiety. With activity heart rate is going up to more than 120. Patient is asymptomatic. Discussed the case with the charge from the psychiatric department the request for medical clearance if possible and they are planning to find a place for her in a psychiatric hospital. Patient is under involuntary commitment. 04/21/2018 this is an female admitted with Wellbutrin intentional overdose she was under involuntary commitment the psych team called me they want to put the patient on Zyprexa 5 mg in the morning 2.5 mg in the evening and Cogentin 1 mg daily. They want to see the response to the medications if she is not responded well my understanding is that they may send her to the psychiatric facility. No acute events in the last 24 hours. Patient is afebrile. Reason For Visit: BUPROPION OVERDOSE, IVC PAPERS COMPLETED Physical Exam Vital Signs: Temp Pulse Resp BP Pulse Ox 98.7 F 81 16 108/52 L 100 04/21/18 10:00 04/21/18 10:00 04/21/18 10:00 04/21/18 10:00 04/21/18 10:00 Intake & Output 04/20/18 04/21/18 04/22/18 06:59 06:59 06:59 Intake Total 1700 1476 466 Balance 1700 1476 466 Weight 58.3 kg 58.2 kg General appearance: PRESENT: no acute distress Head exam: PRESENT: atraumatic Eye exam: PRESENT: PERRLA Mouth exam: PRESENT: dry mucosa Respiratory exam: PRESENT: clear to auscultation cherie. ABSENT: rales, rhonchi, wheezes Pulses: PRESENT: normal dorsalis pedis pul GI/Abdominal exam: PRESENT: normal bowel sounds, soft. ABSENT: distended, guarding, mass, organolmegaly, rebound, tenderness Extremities exam: PRESENT: full ROM. ABSENT: calf tenderness, clubbing, pedal edema Neurological exam: PRESENT: alert, awake, oriented to person, oriented to place, oriented to time, oriented to situation, CN II-XII grossly intact. ABSENT: motor sensory deficit Psychiatric exam: PRESENT: appropriate affect, normal mood. ABSENT: homicidal ideation, suicidal ideation Results Laboratory Results: 04/21/18 07:02 04/21/18 07:02 04/21/18 04/21/18 07:02 07:02 WBC 4.6 RBC 4.02 Hgb 12.1 Hct 35.9 L MCV 89 MCH 30.2 MCHC 33.8 RDW 12.5 Plt Count 213 Seg Neutrophils % 44.9 Lymphocytes % 43.7 Monocytes % 8.2 Eosinophils % 2.6 Basophils % 0.6 Absolute Neutrophils 2.1 Absolute Lymphocytes 2.0 Absolute Monocytes 0.4 Absolute Eosinophils 0.1 Absolute Basophils 0.0 Sodium 138.6 Potassium 4.1 Chloride 107 Carbon Dioxide 24 Anion Gap 8 BUN 9 Creatinine 0.84 Est GFR ( Amer) > 60 Est GFR (Non-Af Amer) > 60 Glucose 91 Calcium 9.0 Magnesium 1.9 Assessment & Plan - Diagnosis (1) Depression Qualifiers: Depression Type: unspecified Qualified Code(s): F32.9 - Major depressive disorder, single episode, unspecified Is this a current diagnosis for this admission?: Yes Plan: 04/19/2018-patient was admitted with a depression with intentional intake of 30 tablets of Wellbutrin. She was under IVC. A consult was requested. 04/20/2018-patient was admitted for depression and she took 30 tablets of Wellbutrin intentionally before that she said she has 4 glasses of wine. But alcohol level is here is 248. Patient has been told the nurses that if she drinks very heavily almost on daily basis. I am concerned about DTs. 04/21/2018-this 27-year-old female admitted with intentional intake of 30 tablets of Wellbutrin. She was under involuntary commitment. told the nurses that patient is a heavy drinker. Be watching for the DTs. Patient denies any signs of depression today. Psych recommended to start on Zyprexa 5 mg in the morning 2.5 mg in the evening and Cogentin 1 mg daily. Plan is to see the response to these medications. (2) Suicidal ideation Is this a current diagnosis for this admission?: Yes Plan: 04/19/2018 patient was admitted after intentional intake of 30 tablets of Wellbutrin. Psych consult was requested, involuntary commitment papers were done. 04/20/2018 patient denies any suicidal ideation or thoughts. She took the Wellbutrin intentionally as per the patient. 04/21/2018-patient's is insisting that she denies any sort of suicidal thoughts or ideation. She is insisting that she took the Wellbutrin intentionally. She is off Wellbutrin since the admission. Patient denies any withdrawal effects. (3) Intentional overdose of drug in tablet form Is this a current diagnosis for this admission?: Yes Plan: 04/19/2018-patient took 30 tablets of Wellbutrin intentionally. Psych consult was requested their input is will be appreciated. Patient is under IVC. 04/20/2018-intentional overdose of Wellbutrin medication. She is doing much better. No complications during the hospital stay. 04/21/2018-patient is doing much better. Denies any anxiety depression, suicidal thoughts or ideation. (4) Tachycardia Is this a current diagnosis for this admission?: Yes Plan: 04/20/2018-she is having sinus tachycardia occasionally heart rate is going up to 140. Patient is asymptomatic. I am going to arrange for twelve-lead EKG. 04/21/2018 patient is occasionally tachycardic heart rate is going up to 120s whenever she gets anxiety spells. We did twelve-lead EKG EKG shows sinus rhythum.. (5) Alcohol use Is this a current diagnosis for this admission?: Yes Plan: Alcohol level yesterday is 248. Patient's informed the nurses that patient is a drinks heavily on daily basis. plan to watch for DTs while she was in the hospital. - Time Time Spent with patient: 15-24 minutes Smoking Cessation Education: over 10 minutes Medications reviewed and adjusted accordingly: Yes
[2018-04-21] MEDS ORDERED: TRAMADOL HCL 50 MG TABLET PO PRN (16:34)
[2018-04-21] MEDS: VENLAFAXINE HCL 37.5 MG CAP.SR.24H PO SCH (21:54)
[2018-04-21] MEDS: BUSPIRONE HCL 10 MG TABLET PO SCH (21:54)
[2018-04-21] MEDS ORDERED: OLANZAPINE 2.5 MG TABLET PO SCH (22:00)
[2018-04-22 07:23] LABS: ABSOLUTE EOSINOPHILS # (AUTO) 0.2 10^3/uL (0.0-0.6); ABSOLUTE LYMPHOCYTES (AUTO) 2.8 10^3/uL (0.5-4.7); ABSOLUTE MONOCYTES (AUTO) 0.5 10^3/uL (0.1-1.4); ABSOLUTE NEUT (AUTO) 2.3 10^3/uL (1.7-8.2); BASOPHILS % (AUTO) 0.8 % (0-2); EOSINOPHILS % (AUTO) 3.4 % (0-6); HEMATOCRIT 37.6 % (36.0-47.0); LYMPHOCYTES % (AUTO) 47.8 % (13-45); MEAN CORPUSCULAR HEMOGLOBIN 30.4 pg (27.0-33.4); MEAN CORPUSCULAR HGB CONC 34.6 g/dL (32.0-36.0); MEAN CORPUSCULAR VOLUME 88 fl (80-97); MONOCYTES % (AUTO) 8.5 % (3-13); PLATELET COUNT 235 10^3/uL (150-450); RED BLOOD COUNT 4.28 10^6/uL (3.72-5.28); RED CELL DISTRIBUTION WIDTH 12.6 % (11.5-14.0); SEGMENTED NEUTROPHILS % (AUTO) 39.5 % (42-78); TOTAL CELLS COUNTED % (AUTO) 100 %; WHITE BLOOD COUNT 5.8 10^3/uL (4.0-10.5)
[2018-04-22 07:38] LABS: ANION GAP 7 (5-19); BLOOD UREA NITROGEN 10 mg/dL (7-20); CALCIUM 9.3 mg/dL (8.4-10.2); CARBON DIOXIDE 26 mmol/L (22-30); CHLORIDE 108 mmol/L (98-107); GLUCOSE 91 mg/dL (75-110); POTASSIUM 4.3 mmol/L (3.6-5.0); SODIUM 140.9 mmol/L (137-145)
[2018-04-22] MEDS ORDERED: OLANZAPINE 5 MG TABLET PO SCH (08:00)
[2018-04-22] MEDS: FAMOTIDINE 20 MG TABLET PO SCH (09:22)
[2018-04-22] MEDS: VENLAFAXINE HCL 37.5 MG CAP.SR.24H PO SCH (09:22)
[2018-04-22] MEDS: BUSPIRONE HCL 10 MG TABLET PO SCH (09:22)
[2018-04-22] MEDS: ENOXAPARIN SODIUM INJ 40 MG/0.4 ML DISP.SYRIN SUBCUT SCH (09:25)
[2018-04-22] MEDS ORDERED: BENZTROPINE MESYLATE 1 MG TABLET PO SCH (10:00)
--- NOTE | 2018-04-22 16:08 | PDOC PROGRESS REPORT ---
Subjective Progress Note for:: 04/22/18 Subjective:: 04/19/2018-no acute events since admission. Patient is complaining of nausea she threw up p.o. Zofran then she was given IV Zofran and nausea was resolving. No complaints from the patient. Patient was started on Nubain every 3 hours for headaches. Plan to discontinue Nubain started on Percocet 2 tablets every 4 as needed. 04/20/2018 no acute events in the last 24 hours. Patient is alert and oriented communicating very well. Patient is getting occasionally tachycardic whenever she gets anxiety. With activity heart rate is going up to more than 120. Patient is asymptomatic. Discussed the case with the charge from the psychiatric department the request for medical clearance if possible and they are planning to find a place for her in a psychiatric hospital. Patient is under involuntary commitment. 04/21/2018 this is an female admitted with Wellbutrin intentional overdose she was under involuntary commitment the psych team called me they want to put the patient on Zyprexa 5 mg in the morning 2.5 mg in the evening and Cogentin 1 mg daily. They want to see the response to the medications if she is not responded well my understanding is that they may send her to the psychiatric facility. No acute events in the last 24 hours. Patient is afebrile. 04/22/2018 the Daniel Calderon female admitted for a Wellbutrin intentional overdose. She is also is a heavy drinker. Psych evaluation was done the recommendation is to start on Zyprexa 5 mg in the morning 2.5 mg in the evening and also Cogentin 1 mg p.o. twice a day. There also was to start the patient on BuSpar 10 mg p.o. twice a day and Effexor 37.5 mg p.o. twice a day. And is comfortably sleeping in the bed. No complications. With minimal activity patient's heart rate is going up to 140s to 150s. Plan to start on metoprolol 12.5 mg p.o. twice a day. Reason For Visit: BUPROPION OVERDOSE, IVC PAPERS COMPLETED Physical Exam Vital Signs: Temp Pulse Resp BP Pulse Ox 98.1 F 74 16 111/65 99 04/22/18 11:21 04/22/18 14:00 04/22/18 11:21 04/22/18 11:21 04/22/18 11:21 Intake & Output 04/21/18 04/22/18 04/23/18 06:59 06:59 06:59 Intake Total 1476 1666 Balance 1476 1666 Weight 58.2 kg 58.2 kg General appearance: PRESENT: no acute distress Head exam: PRESENT: atraumatic Eye exam: PRESENT: PERRLA Neck exam: ABSENT: carotid bruit, JVD, lymphadenopathy, thyromegaly Respiratory exam: PRESENT: decreased breath sounds Cardiovascular exam: PRESENT: tachycardia GI/Abdominal exam: PRESENT: normal bowel sounds, soft. ABSENT: distended, guarding, mass, organolmegaly, rebound, tenderness Extremities exam: PRESENT: full ROM. ABSENT: calf tenderness, clubbing, pedal edema Neurological exam: PRESENT: alert, awake, oriented to person, oriented to place, oriented to time, oriented to situation, CN II-XII grossly intact. ABSENT: mot or sensory deficit Psychiatric exam: PRESENT: appropriate affect, normal mood. ABSENT: homicidal ideation, suicidal ideation Results Laboratory Results: 04/22/18 06:23 04/22/18 06:23 04/22/18 04/22/18 06:23 06:23 WBC 5.8 RBC 4.28 Hgb 13.0 Hct 37.6 MCV 88 MCH 30.4 MCHC 34.6 RDW 12.6 Plt Count 235 Seg Neutrophils % 39.5 L Lymphocytes % 47.8 H Monocytes % 8.5 Eosinophils % 3.4 Basophils % 0.8 Absolute Neutrophils 2.3 Absolute Lymphocytes 2.8 Absolute Monocytes 0.5 Absolute Eosinophils 0.2 Absolute Basophils 0.0 Sodium 140.9 Potassium 4.3 Chloride 108 H Carbon Dioxide 26 Anion Gap 7 BUN 10 Creatinine 0.82 Est GFR ( Amer) > 60 Est GFR (Non-Af Amer) > 60 Glucose 91 Calcium 9.3 Magnesium 2.1 Assessment & Plan - Diagnosis (1) Depression Qualifiers: Depression Type: unspecified Qualified Code(s): F32.9 - Major depressive disorder, single episode, unspecified Is this a current diagnosis for this admission?: Yes Plan: 04/19/2018-patient was admitted with a depression with intentional intake of 30 tablets of Wellbutrin. She was under IVC. A consult was requested. 04/20/2018-patient was admitted for depression and she took 30 tablets of Wellbutrin intentionally before that she said she has 4 glasses of wine. But alcohol level is here is 248. Patient has been told the nurses that if she drinks very heavily almost on daily basis. I am concerned about DTs. 04/21/2018-this 27-year-old female admitted with intentional intake of 30 tablets of Wellbutrin. She was under involuntary commitment. told the nurses that patient is a heavy drinker. Be watching for the DTs. Patient denies any signs of depression today. Psych recommended to start on Zyprexa 5 mg in the morning 2.5 mg in the evening and Cogentin 1 mg daily. Plan is to see the response to these medications. 04/22/2018 patient has history of depression she is on Wellbutrin she is off the Wellbutrin now because she took more than 30 tablets of it at home no evidence of any anxiety depression during the hospital stay. (2) Suicidal ideation Is this a current diagnosis for this admission?: Yes Plan: 04/19/2018 patient was admitted after intentional intake of 30 tablets of Wellbutrin. Psych consult was requested, involuntary commitment papers were done. 04/20/2018 patient denies any suicidal ideation or thoughts. She took the Wellbutrin intentionally as per the patient. 04/21/2018-patient's is insisting that she denies any sort of suicidal thoughts or ideation. She is insisting that she took the Wellbutrin intentionally. She is off Wellbutrin since the admission. Patient denies any withdrawal effects. 04/22/2018-patient denies any suicidal thoughts or ideation. She is adamant that she took Wellbutrin intentionally. (3) Intentional overdose of drug in tablet form Is this a current diagnosis for this admission?: Yes Plan: 04/19/2018-patient took 30 tablets of Wellbutrin intentionally. Psych consult was requested their input is will be appreciated. Patient is under IVC. 04/20/2018-intentional overdose of Wellbutrin medication. She is doing much better. No complications during the hospital stay. 04/21/2018-patient is doing much better. Denies any anxiety depression, suicidal thoughts or ideation. 04/22/2018-patient was admitted with intentional overdose of Wellbutrin. (4) Tachycardia Is this a current diagnosis for this admission?: Yes Plan: 04/20/2018-she is having sinus tachycardia occasionally heart rate is going up to 140. Patient is asymptomatic. I am going to arrange for twelve-lead EKG. 04/21/2018 patient is occasionally tachycardic heart rate is going up to 120s whenever she gets anxiety spells. We did twelve-lead EKG shows sinus rhythum. 04/22/2018 patient is tachycardic with minimal activity heart rate is going up to 140s 150s. On planning to start her on metoprolol low-dose 12.5 mg p.o. twice a day. (5) Alcohol use Is this a current diagnosis for this admission?: Yes Plan: Alcohol level yesterday is 248. Patient's informed the nurses that patient is a drinks heavily on daily basis. plan to watch for DTs while she was in the hospital. 04/22/2017-patient has history of heavy alcohol use we are watching her for DTs so far no signs of any withdrawal. Psych team is also following the patient. - Time Time Spent with patient: 15-24 minutes Smoking Cessation Education: over 10 minutes Medications reviewed and adjusted accordingly: Yes Anticipated discharge: Home
[2018-04-22 16:09] VITALS: BP 103/65
--- NOTE | 2018-04-22 17:11 | PSYCHOLOGICAL NOTE ---
Psych Note - Psych Note Date seen by psych provider: 04/22/18 Time seen by psych provider: 16:15 Psych Note: Reason for Consult: intentional overdose Check-in conducted with patient Patient reports she is feeling well today. She disclosed that she has been a little more tired than normal. She disclosed that she has not been wanting any alcohol and is not concerned with cravings. She identifies her roommate as her support system until her gets home next month. She is unable to provide the number to her roommate. Patient continued to denies thoughts of harming herself since she first arrival to [facility]. She identifies drinking alcohol as her trigger which lowers her impulse control. Patient confirms she is going to abstain from drinking and wants to follow through with mental health recommendations. Patient's mood is euthymic with congruent affect, maintains good eye contact, and actively engages with clinician. Medication recommendations per [facility]'s contracted psychiatrist Dr Clara GONSALVES are as follows Zyprexa 5mg every morning and 2.5mg every evening Cogentin 1mg daily please discontinue Oxycodone Start tramadol 25 mg every 6 hours PRN Start Effexor 37.5 mg twice daily Start BuSpar 10 mg twice daily Diagnosis 296.30 (F33.9) Major depressive disorder per history report by patient 291.9 (F10.99) Unspecified substance abuse;alcohol R/O Bipolar disorder Impression/Plan: Patient is recommended for rescind of IVC and is cleared from acute psychiatric services. Patient has been consistently denying suicidal ideation and identifies alcohol as her trigger. She openly engaged with clinician with problem-solving, and confirms wanting to follow through with mental health recommendations. Patient identifies her support network as her roommate and her once he returns from deployment next month. Patient is recommended to continue with outpatient mental health services for therapeutic services, substance abuse treatment and medication management. Dr. Gao was consulted and care management this patient; attending physicians in agreement with recommendations and disposition.
--- NOTE | 2018-04-22 17:44 | PDOC DISCHARGE SUMMARY ---
General - Admit/Disc Date/PCP Admission Date/Primary Care Provider: 04/19/18 04:56 Discharge Date: 04/22/18 - Discharge Diagnosis (1) Depression Is this a current diagnosis for this admission?: Yes Summary: 04/19/2018-patient was admitted with a depression with intentional intake of 30 tablets of Wellbutrin. She was under IVC. A consult was requested. 04/20/2018-patient was admitted for depression and she took 30 tablets of Wellbutrin intentionally before that she said she has 4 glasses of wine. But alcohol level is here is 248. Patient has been told the nurses that if she drinks very heavily almost on daily basis. I am concerned about DTs. 04/21/2018-this 27-year-old female admitted with intentional intake of 30 tablets of Wellbutrin. She was under involuntary commitment. told the nurses that patient is a heavy drinker. Be watching for the DTs. Patient denies any signs of depression today. Psych recommended to start on Zyprexa 5 mg in the morning 2.5 mg in the evening and Cogentin 1 mg daily. Plan is to see the response to these medications. 04/22/2018 patient has history of depression she is on Wellbutrin she is off the Wellbutrin now because she took more than 30 tablets of it at home no evidence of any anxiety depression during the hospital stay. 2018 psych see the patient today they revoked the IVC papers. I spoke to the psychiatric team they said patient is cleared to go home but she needs to take the Zyprexa 5 mg in the morning 2.5 mg in the evening Cogentin 1 mg p.o. daily, BuSpar 10 mg p.o. twice daily and Effexor 37.5 mg p.o. twice daily. Under the going to see her as an outpatient. pt agreed to go home today. (2) Suicidal ideation Is this a current diagnosis for this admission?: Yes Summary: 04/19/2018 patient was admitted after intentional intake of 30 tablets of Wellbutrin. Psych consult was requested, involuntary commitment papers were don e. 04/20/2018 patient denies any suicidal ideation or thoughts. She took the Wellbutrin intentionally as per the patient. 04/21/2018-patient's is insisting that she denies any sort of suicidal thoughts or ideation. She is insisting that she took the Wellbutrin intentionally. She is off Wellbutrin since the admission. Patient denies any withdrawal effects. 04/22/2018-patient denies any suicidal thoughts or ideation. She is adamant that she took Wellbutrin intentionally. 04/22/2018-patient says she took the Wellbutrin tablets more than 30 intentionally denies any suicidal thoughts and ideation. (3) Intentional overdose of drug in tablet form Is this a current diagnosis for this admission?: Yes Summary: 04/19/2018-patient took 30 tablets of Wellbutrin intentionally. Psych consult was requested their input is will be appreciated. Patient is under IVC. 04/20/2018-intentional overdose of Wellbutrin medication. She is doing much better. No complications during the hospital stay. 04/21/2018-patient is doing much better. Denies any anxiety depression, suicidal thoughts or ideation. 04/22/2018-patient was admitted with intentional overdose of Wellbutrin. 2018 patient admitted that she took the Wellbutrin overdose intentionally prior to that she said she has had a few glasses of wine followed by the camille stion of the Wellbutrin tablets. She is saying she took medications intentionally but had no thoughts of hurting herself (4) Tachycardia Is this a current diagnosis for this admission?: Yes Summary: 04/20/2018-she is having sinus tachycardia occasionally heart rate is going up to 140. Patient is asymptomatic. I am going to arrange for twelve-lead EKG. 04/21/2018 patient is occasionally tachycardic heart rate is going up to 120s whenever she gets anxiety spells. We did twelve-lead EKG shows sinus rhythum. 04/22/2018 patient is tachycardic with minimal activity heart rate is going up to 140s 150s. On planning to start her on metoprolol low-dose 12.5 mg p.o. twice a day. 04/22/2018 patient is tachycardic with minimal activity at rest heart rate is coming down to 90s with activity heart rate is going up to 140s she was started on metoprolol 12.5 mg p.o. twice daily I am going to give a prescription for her to take home I strongly advised her to follow-up with primary care physician in 1 week for further management. pt agreed and verbalized response. (5) Alcohol use Is this a current diagnosis for this admission?: Yes Summary: Alcohol level yesterday is 248. Patient's informed the nurses that patient is a drinks heavily on daily basis. plan to watch for DTs while she was in the hospital. 04/22/2017-patient has history of heavy alcohol use we are watching her for DTs so far no signs of any withdrawal. Psych team is also following the patient. 04/22/2018 patient family is telling patient is a heavy alcohol user and we advised her for DTs but no withdrawal symptoms are noticed during the hospital stay. In my opinion patient is stable enough to go home. Patient was strongly advised to quit alcohol intake. - Additional Information Resuscitation Status: Full Code Discharge Diet: Regular Discharge Activity: Activity As Tolerated Prescriptions: Benztropine Mesylate [Cogentin 1 mg Tablet] 1 mg PO DAILY #30 tablet Buspirone HCl [Buspar 10 mg Tablet] 10 mg PO Q12 #60 tablet Metoprolol Tartrate [Lopressor 25 mg Tablet] 12.5 mg PO Q12 #60 tablet Olanzapine [Zyprexa 2.5 mg Tablet] 2.5 mg PO QHS #30 tablet Olanzapine [Zyprexa 5 mg Tablet] 5 mg PO QAM #30 tablet Tramadol HCl [Ultram 50 mg Tablet] 25 mg PO Q6HP PRN #120 tablet PRN Reason: Venlafaxine HCl ER [Effexor Xr 37.5 mg Cap.sr] 37.5 mg PO Q12 #60 cap.sr.24h Home Medications: Benztropine Mesylate [Cogentin 1 mg Tablet] 1 mg PO DAILY #30 tablet 04/22/18 Buspirone HCl [Buspar 10 mg Tablet] 10 mg PO Q12 #60 tablet 04/22/18 Metoprolol Tartrate [Lopressor 25 mg Tablet] 12.5 mg PO Q12 #60 tablet 04/22/18 Olanzapine [Zyprexa 2.5 mg Tablet] 2.5 mg PO QHS #30 tablet 04/22/18 Olanzapine [Zyprexa 5 mg Tablet] 5 mg PO QAM #30 tablet 04/22/18 Tramadol HCl [Ultram 50 mg Tablet] 25 mg PO Q6HP PRN #120 tablet 04/22/18 Venlafaxine HCl ER [Effexor Xr 37.5 mg Cap.sr] 37.5 mg PO Q12 #60 cap.sr.24h 04/22/18 History of Present Illness History of Present Illness: VIKKI ALDRIDGE is a 27 year old female who presented to the emergency room within an hour of taking 30 capsules of bupropion 150 mg at home. Patient states that the affect was more 1 of an impulse than of a thought out plan to actually kill herself. The impulse was definitely suicidal but she very quickly changed her mind after taking the pills. She denies any symptoms after ingestion with the exception of drowsiness and a moderately severe bifrontal headache. In the emergency room she was found to have essentially negative evaluation and was subsequently admitted to observation status for telemetry monitoring for arrhythmias and serial monitoring of her vital signs. Involuntary commitment papers have been signed and the patient will most likely be seen by a inpatient psychiatric facility after discharge/transfer if advised by psychiatric services. Physical Exam Vital Signs: Temp Pulse Resp BP Pulse Ox 97.8 F 82 15 103/65 98 04/22/18 16:00 04/22/18 16:00 04/22/18 16:00 04/22/18 16:00 04/22/18 16:00 Intake & Output 04/21/18 04/22/18 04/23/18 06:59 06:59 06:59 Intake Total 1476 1666 Balance 1476 1666 Weight 58.2 kg 58.2 kg General appearance: PRESENT: no acute distress Head exam: PRESENT: atraumatic Eye exam: PRESENT: PERRLA Mouth exam: PRESENT: moist Neck exam: ABSENT: carotid bruit, JVD, lymphadenopathy, thyromegaly Respiratory exam: PRESENT: clear to auscultation cherie. ABSENT: rales, rhonchi, wheezes Cardiovascular exam: PRESENT: RRR. ABSENT: diastolic murmur, rubs, systolic murmur GI/Abdominal exam: PRESENT: normal bowel sounds, soft. ABSENT: distended, guarding, mass, organolmegaly, rebound, tenderness Extremities exam: PRESENT: full ROM. ABSENT: calf tenderness, clubbing, pedal edema Neurological exam: PRESENT: alert, awake, oriented to person, oriented to place, oriented to time, oriented to situation, CN II-XII grossly intact. ABSENT: motor sensory deficit Psychiatric exam: PRESENT: appropriate affect, normal mood. ABSENT: homicidal ideation, suicidal ideation Results Laboratory Results: 04/22/18 06:23 04/22/18 06:23 04/22/18 04/22/18 06:23 06:23 WBC 5.8 RBC 4.28 Hgb 13.0 Hct 37.6 MCV 88 MCH 30.4 MCHC 34.6 RDW 12.6 Plt Count 235 Seg Neutrophils % 39.5 L Lymphocytes % 47.8 H Monocytes % 8.5 Eosinophils % 3.4 Basophils % 0.8 Absolute Neutrophils 2.3 Absolute Lymphocytes 2.8 Absolute Monocytes 0.5 Absolute Eosinophils 0.2 Absolute Basophils 0.0 Sodium 140.9 Potassium 4.3 Chloride 108 H Carbon Dioxide 26 Anion Gap 7 BUN 10 Creatinine 0.82 Est GFR ( Amer) > 60 Est GFR (Non-Af Amer) > 60 Glucose 91 Calcium 9.3 Magnesium 2.1 Qualifiers - * PATIENT BEING DISCHARGED WITH ANY OF THE FOLLOWING DIAGNOSIS: No VTE patient discharged on overlapping Therapy?: No
[2018-04-22] MEDS ORDERED: METOPROLOL TARTRATE 25 MG TABLET PO SCH (22:00)
== END 2018-04-22 19:27 | disposition home or self-care (01) | DRG 918 ==
LOC: ER 00:44 → EH 04:56 → 5 15:19
PROVIDERS: ADMIT Emergency Medicine; ATTEND Emergency Medicine
DX: T43.292A Poisoning by other antidepressants, intentional self-harm, initial encounter (principal); F32.9 Major depressive disorder, single episode, unspecified; R00.0 Tachycardia, unspecified; Z72.89 Other problems related to lifestyle; R51 Headache; Y92.019 Unspecified place in single-family (private) house as the place of occurrence of the external cause
CPT/HCPCS: 36415; 80048; 80053; 80061; 80307; 81001; 83735; 84439; 84443; 84481; 84703; 85025; 93005; 93010; 99285; J2405; J3490; J7030; S0119

== ENCOUNTER 2018-05-11 12:00 | Emergency (ER) | payer OTHER ==
--- NOTE | 2018-05-11 12:24 | ER Document Report ---
ED Medical Screen (RME) - General Chief Complaint: Palpitations Stated Complaint: CHEST PAIN Time Seen by Provider: 05/11/18 12:23 Notes: While having chest pain and shortness of breath after taking multiple antipsychotic and antidepressant medications prescribed by the psychiatrist. TRAVEL OUTSIDE OF THE [place] IN LAST 30 DAYS: No - Related Data Allergies/Adverse Reactions: amoxicillin Allergy (Severe, Verified 05/11/18 12:01) Unknown reaction Past Medical History - Past Medical History Cardiac Medical History: Denies: Hx Coronary Artery Disease, Hx DVT, Hx Hypercholesterolemia, Hx Hypertension, Hx Pulmonary Embolism Pulmonary Medical History: Denies: Hx Asthma, Hx Bronchitis, Hx Pneumonia Neurological Medical History: Denies: Hx Seizures Endocrine Medical History: Denies: Hx Diabetes Mellitus Type 1, Hx Hyperthyroidi sm, Hx Hypothyroidism Renal/ Medical History: Denies: Hx Peritoneal Dialysis GI Medical History: Denies: Hx Cirrhosis, Hx Crohn's Disease, Hx Hepatitis, Hx Ulcerative Colitis Musculoskeltal Medical History: Denies Hx Arthritis, Denies Hx Fibromyalgia Skin Medical History: Denies Hx Eczema, Denies Hx Psoriasis Psychiatric Medical History: Reports: Hx Depression Infectious Medical History: Denies: Hx Hepatitis - Immunizations Immunizations up to date: Yes Hx Diphtheria, Pertussis, Tetanus Vaccination: Yes Physical Exam - Vital signs Vitals: Temp Pulse Resp BP Pulse Ox 98.5 F 105 H 17 124/75 97 05/11/18 12:11 05/11/18 12:11 05/11/18 12:11 05/11/18 12:11 05/11/18 12:11 Course - Vital Signs Vital signs: Temp Pulse Resp BP Pulse Ox 98.5 F 105 H 17 124/75 97 05/11/18 12:11 05/11/18 12:11 05/11/18 12:11 05/11/18 12:11 05/11/18 12:11
--- NOTE | 2018-05-11 13:06 | ER Document Report ---
ED General - General Chief Complaint: Palpitations Stated Complaint: CHEST PAIN Time Seen by Provider: 05/11/18 12:23 TRAVEL OUTSIDE OF THE [place] IN LAST 30 DAYS: No - HPI Notes: Patient is a 27-year-old female with a history of alcohol abuse and major depressive disorder who presents to the emergency department complaining of intermittent chest pain and palpitations over the last several weeks after being started on several psychiatric medications. Patient states that she is eating and drinking without difficulty. The pain in her chest sometimes feels like a burn which she believes may be acid reflux. She is urinating normally and having normal bowel movements. Denies IV drug abuse. Patient has not had any SI/HI. No visual or auditory hallucinations. She otherwise feels well at this time. She has been evaluated by her family doctor in the interim and he placed a referral to a block chopper hand. Currently asymptomatic. Pt does have a nexplanon implant. Denies any prolonged immobilization, distance travel, recent surgery/trauma, personal cancer history, or previous DVT/PE. Denies any headache, fever, neck pain, URI, sore throat, syncope, cough, shortness of breath, wheeze, dyspnea, abdominal pain, nausea/vomiting/diarrhea, urinary retention, dysuria, hematuria, loss of control of bowel or bladder, numbness/tingling, muscle paralysis/weakness, or rash. - Related Data Allergies/Adverse Reactions: amoxicillin Allergy (Severe, Verified 05/11/18 12:01) Unknown reaction Past Medical History - Social History Smoking Status: Unknown if Ever Smoked Chew tobacco use (# tins/day): No Frequency of alcohol use: Occasional Drug Abuse: None Family History: denies: CAD, DM, Hypertension, Malignancy Patient has suicidal ideation: No Patient has homicidal ideation: No - Past Medical History Cardiac Medical History: Denies: Hx Coronary Artery Disease, Hx DVT, Hx Hypercholesterolemia, Hx Hypertension, Hx Pulmonary Embolism Pulmonary Medical History: Denies: Hx Asthma, Hx Bronchitis, Hx Pneumonia Neurological Medical History: Denies: Hx Seizures Endocrine Medical History: Denies: Hx Diabetes Mellitus Type 1, Hx Hyperthyroidism, Hx Hypothyroidism Renal/ Medical History: Denies: Hx Peritoneal Dialysis GI Medical History: Denies: Hx Cirrhosis, Hx Crohn's Disease, Hx Hepatitis, Hx Ulcerative Colitis Musculoskeletal Medical History: Denies Hx Arthritis, Denies Hx Fibromyalgia Skin Medical History: Denies Hx Eczema, Denies Hx Psoriasis Psychiatric Medical History: Reports: Hx Depression Infectious Medical History: Denies: Hx Hepatitis - Immunizations Immunizations up to date: Yes Hx Diphtheria, Pertussis, Tetanus Vaccination: Yes Review of Systems - Review of Systems -: Yes All other systems reviewed and negative Physical Exam - Vital signs Vitals: Temp Pulse Resp BP Pulse Ox 98.5 F 105 H 17 124/75 97 05/11/18 12:11 05/11/18 12:11 05/11/18 12:11 05/11/18 12:11 05/11/18 12:11 - Notes Notes: PHYSICAL EXAMINATION: GENERAL: Well-appearing, well-nourished and in no acute distress. A&Ox4. Answers questions appropriately. HEAD: Atraumatic, normocephalic. EYES: Pupils equal round and reactive to light, extraocular movements intact, sclera anicteric, conjunctiva are normal. ENT: Nares patent and without discharge. oropharynx clear without exudates. No tonsilar hypertrophy or erythema. Moist mucous membranes. NECK: Normal range of motion, supple without lymphadenopathy LUNGS: Breath sounds clear to auscultation bilaterally and equal. No wheezes rales or rhonchi. HEART: Regular rate and rhythm without murmurs, rubs, gallops. ABDOMEN: Soft, nontender, nondistended abdomen. No guarding, no rebound. No masses appreciated. Normal bowel sounds present. No CVA tenderness bilaterally. Musculoskeletal: FROM to passive/active. Strength 5+/5. Marcia neg. No asymmetry to LE's. Extremities: No cyanosis, clubbing, or edema b/l. Peripheral pulses 2+. Capillary refill less than 3 seconds. NEUROLOGICAL: Normal speech, normal gait. PSYCH: Normal mood, normal affect. SKIN: Warm, Dry, normal turgor, no rashes or lesions noted. Course - Re-evaluation Re-evalutation: 05/11/18 15:17 Patient is an afebrile, well-hydrated 27-year-old female who presents to the ED with palpitations and atypical cp. Vitals are acceptable without any significant tachycardia, tachypnea, or hypoxia. PE is otherwise unremarkable. Patient is nontoxic-appearing and is tolerating p.o. without any difficulties. Pt is currently asymptomatic. CBC, CMP, EKG/cardiac enzymes, d-dimer, chest x- ray are all unremarkable for any acute pathology. Patient has a heart score of 1 for family history. Patient does not have any chest pain, dyspnea, or shortness of breath. Orthostatics negative. Patient's presentation and symptomatology creates low suspicion for ACS, PE, pneumothorax, pericarditis, dissection, respiratory compromise, severe dehydration, sepsis, meningitis, or other systemic emergent condition at this time. Patient is aware that this condition can change from initial presentation and she needs to monitor symptoms closely and seek medical attention for any acute changes. Pt was seen by our P sychology team who made their med recommendations as her symptoms began after starting her meds from her last visit (see below). Pt is feeling better and would like to go home. Recommend conservative measures for symptoms. Recheck with your PCM in 2-3 days. Consider consult with Cardiology. Return to the ED with any worsening/concerning symptoms otherwise as reviewed in discharge. Patient is in agreement. Per Psych: Medication recommendations per [facility]'s contracted psychiatrist Dr Clara GONSALVES are as follows Please discontinue effexor and buspar Continue Zyprexa 5mg every morning and 2.5mg every evening Continue Congentin 1mg daily - Vital Signs Vital signs: Temp Pulse Resp BP Pulse Ox 98.5 F 94 13 110/71 98 05/11/18 12:11 05/11/18 15:11 05/11/18 13:20 05/11/18 15:11 05/11/18 13:38 - Laboratory Result Diagrams: 05/11/18 12:38 05/11/18 12:38 Laboratory results interpreted by me: 05/11/18 05/11/18 12:38 12:38 AST 91 H ALT 217 H Urine Ascorbic Acid 40 H Salicylates < 1.0 L Acetaminophen < 10 L Discharge - Discharge Clinical Impression: Heart palpitations Condition: Stable Disposition: HOME, SELF-CARE Additional Instructions: Maintain adequate fluid and food intake Take home medications as directed Healthy diet/exercise Monitor blood pressure daily and keep a log Monitor symptoms for any acute changes Recheck with your PCM in 2-3 days Consider a follow-up with cardiology Return to the ED with any worsening symptoms and/or development of fever, headache, chest pain, palpitations, syncope, shortness of breath, trouble breathing, abdominal pain, n/v/d, blood in stool/urine, loss of control of bowel/bladder, urinary retention, muscle weakness/paralysis, numbness/tingling, or other worsening symptoms that are concerning to you. Per our Psychology team: Medication recommendations per [facility]'s contracted psychiatrist Dr Clara GONSALVES are as follows Please discontinue effexor and buspar Continue Zyprexa 5mg every morning and 2.5mg every evening Continue Congentin 1mg daily Referrals: ALMAS FATIMA MD [Primary Care Provider] - 05/15/18 MALKA HESS MD [ACTIVE STAFF] - Follow up as needed
[2018-05-11 13:07] LABS: ABSOLUTE EOSINOPHILS # (AUTO) 0.2 10^3/uL (0.0-0.6); ABSOLUTE LYMPHOCYTES (AUTO) 1.9 10^3/uL (0.5-4.7); ABSOLUTE MONOCYTES (AUTO) 0.4 10^3/uL (0.1-1.4); BASOPHILS % (AUTO) 0.6 % (0-2); EOSINOPHILS % (AUTO) 3.1 % (0-6); HEMOGLOBIN 13.2 g/dL (12.0-15.5); LYMPHOCYTES % (AUTO) 29.1 % (13-45); MEAN CORPUSCULAR HGB CONC 33.7 g/dL (32.0-36.0); MEAN CORPUSCULAR VOLUME 89 fl (80-97); MONOCYTES % (AUTO) 6.8 % (3-13); PLATELET COUNT 254 10^3/uL (150-450); RED BLOOD COUNT 4.39 10^6/uL (3.72-5.28); RED CELL DISTRIBUTION WIDTH 12.9 % (11.5-14.0); SEGMENTED NEUTROPHILS % (AUTO) 60.4 % (42-78); TOTAL CELLS COUNTED % (AUTO) 100 %; WHITE BLOOD COUNT 6.6 10^3/uL (4.0-10.5)
--- NOTE | 2018-05-11 13:15 | RADIOLOGY REPORT (SQ) ---
EXAM DESCRIPTION: CHEST SINGLE VIEW COMPLETED DATE/TIME: 05/11/2018 1:07 pm REASON FOR STUDY: cp COMPARISON: None. EXAM PARAMETERS: NUMBER OF VIEWS: One view. TECHNIQUE: Single frontal radiographic view of the chest acquired. RADIATION DOSE: NA LIMITATIONS: None. FINDINGS: LUNGS AND PLEURA: No opacities, masses or pneumothorax. No pleural effusion. MEDIASTINUM AND HILAR STRUCTURES: No masses. Contour normal. HEART AND VASCULAR STRUCTURES: Heart normal in size. Normal vasculature. BONES: No acute findings. HARDWARE: None in the chest. OTHER: No other significant finding. IMPRESSION: NO ACUTE RADIOGRAPHIC FINDING IN THE CHEST. TECHNICAL DOCUMENTATION: JOB ID: [id number] [employer]- All Rights Reserved Reading location - IP/workstation name: [email or web address]
[2018-05-11 13:16] LABS: APPEARANCE,URINE CLEAR; BILIRUBIN,URINE NEGATIVE (NEGATIVE); COLOR,URINE STRAW; GLUCOSE, URINE NEGATIVE (NEGATIVE); KETONES,URINE NEGATIVE (NEGATIVE); LEUKOCYTE ESTERASE,URINE NEGATIVE (NEGATIVE); NITRITE,URINE NEGATIVE (NEGATIVE); PROTEIN,URINE NEGATIVE (NEGATIVE); UROBILINOGEN,URINE NEGATIVE mg/dL (<2.0)
[2018-05-11 13:24] LABS: ALANINE AMINOTRANSFERASE 217 U/L (9-52); ALBUMIN 4.7 g/dL (3.5-5.0); ALKALINE PHOSPHATASE 61 U/L (38-126); ANION GAP 11 (5-19); ASPARTATE AMINO TRANSFERASE 91 U/L (14-36); BILIRUBIN,DIRECT 0.2 mg/dL (0.0-0.4); BILIRUBIN,TOTAL 0.3 mg/dL (0.2-1.3); BLOOD UREA NITROGEN 13 mg/dL (7-20); CALCIUM 9.3 mg/dL (8.4-10.2); CARBON DIOXIDE 25 mmol/L (22-30); CHLORIDE 106 mmol/L (98-107); GLUCOSE 102 mg/dL (75-110); POTASSIUM 4.6 mmol/L (3.6-5.0); SODIUM 141.7 mmol/L (137-145); TOTAL PROTEIN 7.5 g/dL (6.3-8.2)
[2018-05-11 13:25] LABS: ACETAMINOPHEN < 10 ug/mL (10-30); ALCOHOL < 10 mg/dL (NONE DETECTED); SALICYLATE < 1.0 mg/dL (2.0-20.0)
[2018-05-11 13:28] LABS: URINE AMPHETAMINES SCREEN NEGATIVE; URINE BARBITURATES SCREEN NEGATIVE; URINE BENZODIAZEPINES SCREEN NEGATIVE; URINE COCAINE SCREEN NEGATIVE; URINE MARIJUANA (THC) SCREEN NEGATIVE; URINE METHADONE SCREEN NEGATIVE; URINE PHENCYCLIDINE SCREEN NEGATIVE
[2018-05-11] MEDS ORDERED: NORMAL SALINE 1000 ML 1,000 ML IV ONE (14:37)
--- NOTE | 2018-05-11 15:28 | PSYCHOLOGICAL NOTE ---
Psych Note - Psych Note Date seen by psych provider: 05/11/18 Time seen by psych provider: 14:55 Psych Note: Reason for Consult: medication recommendations Patient is a 27-year-old female with a history of alcohol abuse and major depressive disorder who presents to the emergency department complaining of intermittent chest pain and palpitations over the last several weeks after being started on several psychiatric medications. Patient reports that she is doing really well and that feels the medication is working however has been having some side effects from them. She reports that she was told by her primary care physician that she was tachycardic however now is currently just heart palpitations. She reports that her primary care provider told her to go to the emergency department if it occurred again so she came here for evaluation. She reports that her primary care provider was worried that it might be her psychiatric medications and he did not feel comfortable making any adjustments. She continued reports she has noticed that she also has gained 10 pounds however reports "you cannot tell" so has not concerned about that. Patient is alert and orientated to person, place, time and circumstance. Mood is euthymic with congruent affect as evidenced by smiling engaging with clinician. Patient denies suicidal and homicidal ideation. Delusions are absent behaviors congruent with an intact reality based presentation i.e. organized and linear thought process. Eye contact is well-maintained. Conversational speech is within normal rate, tone and prosody. Intellectual abilities appear to be within the average range. Attention and concentration are currently good. Insight, judgment, impulse control are currently good. Medication recommendations per [facility]'s contracted psychiatrist Dr Clara GONSALVES are as follows Please discontinue effexor and buspar Continue Zyprexa 5mg every morning and 2.5mg every evening Continue Congentin 1mg daily 296.30 (F33.9) Major depressive disorder per history report by patient 291.9 (F10.99) Unspecified substance abuse;alcohol R/O Bipolar disorder R/O Borderline Personality Disorder-patient has demonstrated cluster B personality traits during previous evaluations. Impression/plan: Patient is cleared from acute psychiatric services. Patient reports feeling much better since being on the medications however is experiencing some side effects that is affecting her medically. She came in at the direction of her primary care provider because of her heart rate being so erratic. She reports that she has gained approximately 10 pounds however reports she is unconcerned about the weight gain just the medical issues with her heart. Medication recommendations have been provided. Dr. Gao was consulted and the care management this patient; attending physicians in agreement with recommendations and disposition.
[2018-05-11 15:37] VITALS: BP 123/75
--- NOTE | 2018-05-11 22:11 | EKG REPORT ---
SEVERITY:- NORMAL ECG - SINUS RHYTHM : Confirmed by: Reanna Phoenix MD 11-May-2018 22:09:45
== END 2018-05-11 15:37 | disposition home or self-care (01) ==
LOC: ER 12:00
DX: R00.2 Palpitations (principal); R07.89 Other chest pain; F32.9 Major depressive disorder, single episode, unspecified; Z79.899 Other long term (current) drug therapy; Z97.5 Presence of (intrauterine) contraceptive device; Z88.0 Allergy status to penicillin
CPT/HCPCS: 36415; 71045; 80053; 80307; 81001; 84484; 85025; 85379; 93005; 93010; 99285

== ENCOUNTER → 2018-06-12 | Outpatient (CLI) | payer OTHER ==
[2018-06-12 11:10] LABS: ANION GAP 8 (5-19); BLOOD UREA NITROGEN 17 mg/dL (7-20); CALCIUM 9.5 mg/dL (8.4-10.2); CARBON DIOXIDE 25 mmol/L (22-30); CHLORIDE 105 mmol/L (98-107); GLUCOSE 95 mg/dL (75-110); POTASSIUM 4.4 mmol/L (3.6-5.0); SODIUM 138.4 mmol/L (137-145)
== END ==
LOC: LAB 10:02
PROVIDERS: ATTEND Internal Medicine Cardiovascular Disease
DX: R00.2 Palpitations (principal); R07.9 Chest pain, unspecified
CPT/HCPCS: 36415; 80048; 83735; 84443